=== PATIENT | female | born 1990 | race Caucasian/White ===

== ENCOUNTER 2019-09-12 15:06 | Emergency (ER) | payer OTHER ==
[~2019-09-12] VITALS: Ht 170.2 cm; Wt 60.0 kg
[2019-09-12 15:14] VITALS: Ht 170.2 cm; Wt 60.0 kg
[2019-09-12] MEDS ORDERED: ABILIFY10 MG PO (15:16)
[2019-09-12] MEDS ORDERED: PROZAC20 MG PO (15:16)
[2019-09-12] MEDS ORDERED: ADDERALL 20 MG20 M1 PO (15:16)
[2019-09-12 15:33] LABS: BASOPHILS 0.1 % (0-2); EOSINOPHILS 0.2 % (0-7); HEMOGLOBIN 13.7 g/dL (12-16); IMMATURE GRANULOCYTES 0.2 % (0-5); LYMPHOCYTES 9.5 % (15-50); MCH 30.5 pg (26.0-34.0); MCHC 33.4 g/dL (31.0-37.0); MCV 91.3 fL (80.0-100.0); MEAN PLATELET VOLUME 8.7 fL (7.4-10.4); MONOCYTES 4.3 % (2-11); NEUTROPHILS 85.7 % (40-80); PLATELET COUNT 229 10x3/uL (130-400); RBC 4.49 10x6/uL (4.00-5.40); RDW 12.8 % (11.5-14.5); WBC 16.9 10x3/uL (4.8-10.8)
[2019-09-12 15:47] LABS: CALC OSMOLALITY 274 mosm/kg (275-300); CALCIUM 8.6 mg/dL (8.5-10.1); CARBON DIOXIDE 28.8 mmol/L (21.0-32.0); CHLORIDE - SERUM 102 mmol/L (98-107); CREATININE - SERUM 0.9 mg/dL (0.6-1.3); GLUCOSE 130 mg/dL (74-106); POTASSIUM - SERUM 3.9 mmol/L (3.5-5.1); SODIUM 136 mmol/L (136-145); UREA NITROGEN 14 mg/dL (7-18); eGFR NON AFRICAN AMERICAN 77 mL/min (90-120)
[2019-09-12 15:53] LABS: ALKALINE PHOSPHATASE 55 U/L (30-120); ALT (SGPT) 25 U/L (10-68); AMYLASE - SERUM 49 U/L (25-115); BILIRUBIN - TOTAL 0.42 mg/dL (0.2-1.3); LIPASE 66 U/L (73-393); PROTEIN - SERUM 7.4 g/dL (6.4-8.2)
[2019-09-12 16:03] LABS: BILIRUBIN NEGATIVE (NEGATIVE); GLUCOSE NEGATIVE (NEGATIVE); HCG URINE NEGATIVE (NEGATIVE); KETONE SMALL mg/dL (NEGATIVE); NITRITE NEGATIVE (NEGATIVE); UROBILINOGEN NORMAL (NORMAL)
[2019-09-12 17:27] VITALS: BP 152/99
[2019-09-12] MEDS ORDERED: ZOFRAN ODT4 MG/UDTAB PO (18:03)
[2019-09-12] MEDS ORDERED: FLOMAX0.4 MG PO (18:03)
[2019-09-12] MEDS ORDERED: HYDROCODON-ACE1 EA10 PO (18:03)
== END 2019-09-12 18:26 | disposition home or self-care (01) ==
LOC: D.ER 15:06
PROVIDERS: Family Medicine
DX: N13.2 Hydronephrosis with renal and ureteral calculous obstruction (principal); R10.31 Right lower quadrant pain